=== PATIENT | male | born 1955 | race Caucasian/White ===

== ENCOUNTER 2020-12-01 04:45 | Emergency (ER) | payer MEDICARE, OTHER ==
[~2020-12-01 04:45] MED LIST: AMLODIPINE BESY10 MG PO; AMLODIPINE BESYL5 MG PO; ASPIRIN 325MG325 MG PO; ASPIRIN EC81 MG PO; CARVEDILOL25 MG PO; ELAVIL 25 MG TA25 MG PO; FLAGYL500 MG PO; FUROSEMIDE20 MG PO; GLIPIZIDE XL10 MG PO; GLUCOPHAGE1000 MG PO; HABITROL 21 MG P1 EA TD; HYDRALAZINE HC100 MG PO; HYDROXYZINE PAM25 MG PO; HYGROTON TAB 2525 MG PO; IMDUR ER TAB 6060 MG PO; LIPITOR TAB 2020 MG PO; LISINOPRIL10 MG PO; METOPROLOL TAR100 MG PO; MIRALAX 119 GR119 GM PO; MOVANTIK25 MG PO; NITROSTAT0.4 MG SL; NORVASC 5 MG TAB5 MG PO; NOVOLIN 70100 UNITS/ SQ; PERCOCET 10-321 EACH PO; PLAVIX 75 MG TA75 MG PO; PREDNISONE50 MG PO; PROTONIX20 MG PO; RANEXA500 MG PO; TESSALON PERLE100 MG PO; TOPROL XL 100100 MG PO; VENTOLIN HFA 66.7 GM INH; VIBRAMYCIN 100100 MG PO; ZESTRIL 40 MG T40 MG PO; ZYVOX600 MG PO
[2020-12-01 05:25] LABS: HEMOGLOBIN 13.4 gm/dl (14.0-17.5); RED BLOOD COUNT 4.62 M/UL (4.20-5.50); WHITE BLOOD COUNT 6.8 K/UL (4.5-11.0)
[2020-12-01 05:52] LABS: BUN/CREATININE RATIO 37 (0-10)
[2020-12-01] MEDS ORDERED: METOCLOPRAMIDE10 MG PO (13:25)
[2020-12-01] MEDS ORDERED: PROSCAR 5 MG TAB5 MG PO (13:26)
== END 2020-12-01 13:58 | disposition home or self-care (01) ==
LOC: ER1 04:45 → CDU 08:55 → ER1 08:55
PROVIDERS: Family Medicine
DX: I25.110 Atherosclerotic heart disease of native coronary artery with unstable angina pectoris (principal); I16.0 Hypertensive urgency; I13.0 Hypertensive heart and chronic kidney disease with heart failure and stage 1 through stage 4 chronic kidney disease, or unspecified chronic kidney disease; E11.22 Type 2 diabetes mellitus with diabetic chronic kidney disease; N18.30 Chronic kidney disease, stage 3 unspecified; I50.32 Chronic diastolic (congestive) heart failure; I44.7 Left bundle-branch block, unspecified; F17.210 Nicotine dependence, cigarettes, uncomplicated; Z88.0 Allergy status to penicillin; Z95.5 Presence of coronary angioplasty implant and graft; Z98.890 Other specified postprocedural states; E87.1 Hypo-osmolality and hyponatremia; E78.5 Hyperlipidemia, unspecified; I73.9 Peripheral vascular disease, unspecified; Z86.79 Personal history of other diseases of the circulatory system; Z53.20 Procedure and treatment not carried out because of patient's decision for unspecified reasons; Z20.822 Contact with and (suspected) exposure to COVID-19
CPT/HCPCS: 71045; 80053; 82550; 82553; 82962; 83874; 83880; 84484; 85025; 93005; 99285; U0002

== ENCOUNTER → 2021-06-12 | Outpatient (CLI) | payer MEDICARE, OTHER ==
[~2021-06-12] MED LIST changes: +METOCLOPRAMIDE10 MG PO; +PROSCAR 5 MG TAB5 MG PO
== END ==
LOC: LAB 14:35
PROVIDERS: Nurse Practitioner Family
DX: I10 Essential (primary) hypertension (principal)
CPT/HCPCS: 36415; 80048